=== PATIENT | female | born 1960 | race Asian ===

== ENCOUNTER 2016-11-28 10:22 | Emergency (ER) | payer OTHER, MEDICAID ==
[2016-11-28 10:41] VITALS: PULSE 62; RESP 16; TEMP 98.1; O2SAT 97
[2016-11-28] MEDS ORDERED: TDAP ADULT 0.5 ML INJ (BOOSTRIX) IM ONE (10:44)
--- NOTE | 2016-11-28 11:02 | EDPHY ---
H & P Time Seen by Provider: 11/28/16 11:01 HPI/ROS: Chief complaint. Finger laceration HPI. 56-year-old female injured her left index finger at work this morning. 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 She has good range of motion and has no sense of retained foreign body. No other injuries. Patient is right handed. ROS Constitutional. no fever/chills, no weakness Eyes. no problems with vision ENT. no sore throat, no nasal drainage Cardiovascular. no chest pain Respiratory. no shortness of breath, no cough Abdominal. no abdominal pain, no nausea/vomiting, no diarrhea . no problems urinating MS. no calf pain/swelling, no neck/back pain, no joint pain. Skin. 1 cm laceration to the base of the left index finger. Lymph. no swollen glands Neuro. no headache, no dizziness, no difficulty walking or with speech Past Medical/Surgical History: Takes eye medication which is apparently drops for glaucoma; no history of hypertension Social History: , nonsmoker, no alcohol Smoking Status: Unknown if ever smoked Physical Exam: General Appearance: Alert pleasant well-developed female mild distress vital signs significant for initial blood pressure 254/126 Eyes: Pupils equal and round no pallor or injection. ENT, Mouth: Mucous membranes are moist. Respiratory: There are no retractions, lungs are clear to auscultation. Cardiovascular: Regular rate and rhythm. Gastrointestinal: Abdomen is soft and nontender, no masses, bowel sounds normal. Neurological: Awake and alert, sensory and motor exams grossly normal. Skin: 1 cm laceration base left index finger on the ulnar aspect Musculoskeletal: Neck is supple nontender. Extremities symmetrical, full range of motion. Good strength with flexion and extension against resistance to the left index finger Psychiatric: Patient is oriented X 3, there is no agitation. Constitutional: Initial Vital Signs Temperature (C) 36.7 C 11/28/16 10:38 Heart Rate 62 11/28/16 10:38 Respiratory Rate 16 11/28/16 10:38 Blood Pressure 254/126 H 11/28/16 10:38 O2 Sat (%) 97 11/28/16 10:38 O2 Delivery Mode Room Air Allergies/Adverse Reactions: Penicillins Allergy (Verified 11/28/16 10:41) Home Medications: Medication Instructions Recorded Enalapril Maleate [Vasotec 5 MG 5 mg PO DAILY #14 tab 11/28/16 (*)] Eye Medication 11/28/16 Medical Decision Making Procedures: Procedure: Laceration repair. Verbal consent was obtained from the patient. The 1 cm laceration on the left index finger was anesthetized in the usual fashion. The wound was irrigated, draped and explored to its base with a gloved finger. There were no deep structures involved. No tendon injury was identified. The wound was repaired with four 5-0 prolene sutures. The wound repair was simple. The procedure was performed by myself. Patient is given a tetanus shot ED Course/Re-evaluation: Patient remained stable. She and I discussed treatment plan including criteria for return importance of follow-up and further evaluation. She expresses understanding and agreement We also discussed elevated blood pressure and need for follow-up and possible medication Repeat blood pressure is 220/128 Differential Diagnosis: Finger laceration I considered tendon laceration, retained foreign body, infection Potential of wound Blood pressure has remained markedly elevated on re-evaluation. The patient does not have a regular physician and has not seen a physician in quite some time. I will start the patient on blood pressure medication today as her blood pressure does remain so elevated even though she does not have any symptoms. - Data Points Medications Given: Discontinued Medications Diphtheria/Tetanus/Acell Pertussis (Boostrix) 0.5 ml IM .ONCE ONE Stop: 11/28/16 10:45 Last Admin: 11/28/16 11:36 Dose: 0.5 ml Departure - Departure Disposition: Home, Routine, Self-Care Clinical Impression: Finger laceration Qualifiers: Encounter type: initial encounter Finger: index finger Damage to nail status: without damage Foreign body presence: without foreign body Laterality: left Qualified Code(s): S61.211A - Laceration without foreign body of left index finger without damage to nail, initial encounter Condition: Good Instructions: Care For Your Stitches (ED) Additional Instructions: You may shower and wash your hands with stitches in. Avoid immersion. Return for signs of infection. Stitches out 10 days. Your blood pressure was elevated today. I will give you the name of a physician to have your blood pressure rechecked and possible medication. Please make an appointment within the next week. As your blood pressure is quite elevated today I will write you a prescription for blood pressure medication to start. Return for chest discomfort, headache, change in vision. Again it is very important that you follow-up for blood pressure management Referrals: [facility] [Other] - As per Instructions Octavio Hernandez MD [Medical Doctor] - As per Instructions Prescriptions: Enalapril Maleate [Vasotec 5 MG (*)] 5 mg PO DAILY #14 tab
[2016-11-28 11:48] VITALS: BP 220/128
== END 2016-11-28 12:00 | disposition home or self-care (01) ==
LOC: CED 10:22
PROC: 0HQGXZZ Repair Left Hand Skin, External Approach (ICD-10-PCS; principal; 2016-11-28)
DX: S61.211A Laceration without foreign body of left index finger without damage to nail, initial encounter (principal); Z23 Encounter for immunization; W31.9XXA Contact with unspecified machinery, initial encounter; Y92.69 Other specified industrial and construction area as the place of occurrence of the external cause; Y99.0 Civilian activity done for income or pay; Y93.89 Activity, other specified